=== PATIENT | male | born 1995 | race African-American/Black ===

== ENCOUNTER 2017-07-15 13:07 | Emergency (ER) | payer OTHER ==
[~2017-07-15] VITALS: Ht 177.8 cm; Wt 66.0 kg
[2017-07-15 13:18] VITALS: BP 116/64
== END 2017-07-15 18:38 | disposition left against medical advice (07) ==
LOC: ER 13:43
DX: R53.1 Weakness (principal); Z53.21 Procedure and treatment not carried out due to patient leaving prior to being seen by health care provider